=== PATIENT | female | born 1985 | race Caucasian/White ===

== ENCOUNTER 2024-04-08 15:00 | Outpatient (RCR) | payer MEDICARE, MEDICAID, SELFPAY ==
--- NOTE | 2024-03-13 12:46 | HP.PTEVAL ---
Patient's Visit Information Visit Information Visit Information: RAJINDER FAYE is a 38 year old F referred to Physical Therapy by KANDACE MARLOW with a diagnosis of Closed Fx of Right Pubis. Date of Evaluation: 03/13/24 Physical Therapist: Fatmata Ochoa DPT Visit Plan Frequency: 2x /Week Duration: 4 Weeks Plan: WBAT and ROMAT of RLE, gait training per MD -Aquatic Therapy Subjective Subjective: Sep 30 she had a stroke- was on O2- doesn't like to wear it and passed out- fell and landed breaking her pelvis- put in 3 rods in pelvis November 19. She went home after surgery. She has stairs at home but she is able to live all on one floor with 2 steps to enter- able to get up/down but she is able to do them. Pain is locate in the pubic symphysis and the low back. Worst: /10 agg: being awake, movement. Eases: heating pad. Best: 6/10. Most comfortable position is laying down. The pain will radiate down the right leg and the right hip feels like its stabbing. Back pain feels like someone is stepping or crushing her. The anterior pain is more achy. She feels that pain is getting better- but slowly. She is not able to be up and moving much maybe 1.5 to 2 hours a day. Fully I prior to the fall- she was not working. Work: disabled. She is more comfortable in a cushion chair. She is continent but it hurts to use the restroom- she is having a CT to make sure everything is healing correctly. Sleep: disturbed- side sleeper. She can't roll over onto her right side. No N/T in the right leg. She has reverse scoliosis and spinal stenosis prior to the fall, Marfan Syndrome and Lupus. She did have injections but they were flaring up her Lupus. She has not had any injections since 2016. Goals: get moving with less pain. Meds: ridalin, predisone, lituda, asprin, promethazine. May 13 she goes to the vascular MD Objective Objective: Posture: forward head, rounded shoulders- can correct but does not maintain Gait: antalgic- wide base of support- decreased stance on right LE- poor heel/toe pattern HR/TR: able with pain SLS: unable on right without pain Sit to Stand: unable without UE A ROM: Ankle: WNL, Knee: 0-130 degrees Hip: Flexion: 90 degrees, Extn: neutral, Abd: 30 degrees, Add: neutral, IR/ER: neutral, Lumbar: Flexion: hands to knees, Extn: neutral, SB and Rot: decreased by 50% all with pain. Strength: core: poor, Hip: Right: 4-/5 throughout, Knee: 4+/5, Ankle: 5/5 Left: 4+/5, Knee: 5/5 Ankle: 5/5 Flex: HS: moderate Gastroc: moderate Palpation: tender along left parapsinals, right gluts, pubis Balance/Special Test Scores Lower Extremity Functional Score: 15 Goals Goal 1:: Patient will be I with HEP and progression Goal Time Frame: 4-6 Weeks Goal 2:: Patient will ambulate with a normalized gait pattern Goal Time Frame: 4-6 Weeks Goal 3:: Patient will demo full AROM of the right hip Goal Time Frame: 4-6 Weeks Goal 4:: Patient will SLS for 15 sec without LOB or pain on the right LE Goal Time Frame: 4-6 Weeks Goal 5:: Patient will report 80% improvement Goal Time Frame: 4-6 Weeks Rehabilitation Potential Physical Therapy Diagnosis: Patient presents with hypomobility- she has decreased LE and core strength/stabilization, ROM, proprioception, flex and muscular endurance leading to an abnormal gait pattern and increased pain with ADL's. Rehabilitation Potential: Fair Anticipated Interventions Patient/Client Instruction: Educate patient on: Benefits of Fitness Program Therapeutic Exercise to Include: Strength training, Endurance training, Agility training, Body mechanics, Postural training, Flexibilty training, Gait and locomotor training, Neuromotor development, In an aquatic setting, Passive ROM, Active ROM, Dynamic Lumbar Stabilization and Scapular Strength/Stabilization For the Purpose of:: To improve muscle performance and motor function Text: Thank you for the opportunity to evaluate your patient. For Medicare and Medicare HMO plans, please review the plan of care and approve it. It will need to be FAXED BACK to us at [phone] for Medicare purposes. For Medicare only, by signing this I certify the plan of care. Please let me know if there are questions or concerns regarding this plan of care. Physician Signature: Date:
--- NOTE | 2024-06-20 09:21 | HP.PT.NRP ---
Patient Information Patient Information: RAJINDER FAYE was seen in my office for initial evaluation on 03/13/24. The following Plan of Care was established for this patient: POC Established Initial Frequency: 2x /Week Initial Duration: 4 Weeks Anticipated Interventions Patient/Client Instruction: Educate patient on: Benefits of Fitness Program Therapeutic Exercise to Include: Strength training, Endurance training, Agility training, Body mechanics, Postural training, Flexibilty training, Gait and locomotor training, Neuromotor development, In an aquatic setting, Passive ROM, Active ROM, Dynamic Lumbar Stabilization and Scapular Strength/Stabilization For the Purpose of:: To improve muscle performance and motor function Last Seen Last Seen: This patient was last seen in our office . Pertinent comments regarding their Physical therapy will appear below: Pt has not attended PT in over 30 days, appropriate to be d/c at this time and follow with MD. At this point I will be discontinuing this patient from physical therapy. I would be happy to see this patient again in the future if found appropriate by the physician. Thank you! DAR PérezT Balance/Gait/Functional tests Balance/Special Test Scores Lower Extremity Functional Score: 15
== END 2024-04-08 19:00 | disposition home or self-care (01) ==
LOC: PT 15:00
DX: S32.591D Other specified fracture of right pubis, subsequent encounter for fracture with routine healing (principal)
CPT/HCPCS: 97113; 97162